=== PATIENT | male | born 1985 | race Two or more races ===

== ENCOUNTER 2016-06-01 11:51 | Emergency (ER) | payer OTHER ==
[2016-06-01 12:00] VITALS: BMI 32.1
[2016-06-01] MEDS ORDERED: OXYCODONE HCL 5 MG TABLET PO ONE (13:47)
[2016-06-01] MEDS ORDERED: SODIUM CHLORIDE 0.9% 3 ML FLUSH FLUSH PRN (13:59)
[2016-06-01] MEDS ORDERED: HYDROmorphone 1 MG INJECTION IV ONE ×4 (13:59→18:55)
[2016-06-01] MEDS ORDERED: NS 1,000 ML IV ONE ×2 (13:59)
[2016-06-01] MEDS ORDERED: ONDANSETRON HCL 4 MG/2 ML VIAL IV ONE ×2 (14:07→18:55)
[2016-06-01 14:12] LABS: AUTOMATED EOSINOPHIL 2.2 % (0-5); AUTOMATED MONOCYTE 8.6 % (3-10); AUTOMATED NEUTROPHIL 39.2 % (45-76); MPV 8.3 fL (7.4-10.4)
[2016-06-01 14:27] LABS: BLOOD UREA NITROGEN 12 MG/DL (9-20); CALCIUM 9.5 MG/DL (8.4-10.2); CALCULATED OSMOLALITY 269 MOs/Kg (270-290); CHLORIDE 102 mEq/L (98-107); GLUCOSE 125 MG/DL (70-99); SODIUM LEVEL 139 mEq/L (137-146); TOTAL PROTEIN 7.9 G/DL (6.3-8.2)
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
[2016-06-01] MEDS ORDERED: FENTANYL 100 MCG/2 ML VIAL IV ONE (14:54)
[2016-06-01 15:09] LABS: ALL NEG? NO
[2016-06-01 15:12] LABS: LEUKOCYTES/URINE 1+ (NEGATIVE); NITRITE/URINE NEG (NEGATIVE); RBC/URINE 0-2 (0-2); URINE OCCULT BLOOD NEG (NEG/TRACE)
[2016-06-01 15:16] LABS: MDMA* NEG (NEGATIVE); METHAMPHETAMINES NEG (NEGATIVE); OXYCODONE *POSITIVE* (NEGATIVE)
[2016-06-01] MEDS ORDERED: SODIUM CHLORIDE 0.9% 3 ML FLUSH FLUSH SCH (18:00)
[2016-06-01 18:50] VITALS: BP 135/70; PULSE 87; TEMP 98.1
== END 2016-06-01 18:53 | disposition short-term general hospital (02) ==
LOC: ED 11:51
DX: N48.30 Priapism, unspecified (principal)
CPT/HCPCS: 36415; 80053; 80307; 81001; 85025; 96361; 96374; 96375; 96376; 99285; J1170; J2405; J3010; J3490